=== PATIENT | female | born 1990 | race Caucasian/White ===

== ENCOUNTER 2017-06-30 19:09 | Emergency (ER) | payer OTHER ==
[~2017-06-30] VITALS: Ht 180.3 cm; Wt 90.7 kg
--- NOTE | ~2017-06-30 | EKG ---
[address] [address] ELECTROCARDIOGRAM REPORT Name: LAUREN MCLAUGHLINLLE Room #: [id number] Admission: 06/30/17 Attend Phys: Discharge: 06/30/17 Date of : [birth year] Report #: [id number] THIS REPORT FOR: //name// Formerly [facility] ED Test Date: 2017-06-30 Test Time: 20:23:21 Pat Name: LAUREN MCALUGHLIN Department: Room: Gender: F Inspector Floor: JUAN M : 1990 Requested By: Moncho Rogers Order Number: [id number] MD: Darion Brooke Measurements Intervals [place] Rate: 117 P: 47 AK: 133 QRS: 3 QRSD: 84 T: 33 QT: 298 QTc: 416 Interpretive Statements Sinus tachycardia Low voltage, precordial leads Baseline wander in lead(s) II,III,aVF,V3 Compared to ECG 05/30/2017 14:19:31 Electronically Signed On 07-01-2017 9:11:34 [employer] by Darion Brooke [email or web address] <ELECTRONICALLY SIGNED> By: Darion Brooke MD 07/01/17910 22 22 Darion Brooke MD /KEMI
[~2017-06-30 19:09] MED LIST: ACETAMINOPHEN-1 EAC1 PO; ALEVE220 MG; APAP500; CIPROFLOXACIN250 M2 PO; CLEOCIN HCL150 MG PO; CLEOCIN HCL300 MG PO; DEPO; DEPO-ESTRAD5 MG/1 ML; EXCEDRIN CAPLE1 EACH; EXCEDRIN MIGRA1 EAC1 PO; FLAGYL500 MG PO; IBUPROFEN 200200 M1 PO; IBUPROFEN 600600 M1 PO; IBUPROFEN 800800 MG PO; LEVAQUIN 500 M500 MG PO; NAPROSYN500 MG PO; NOHOMEMEDICATIONS; NORCO 5-325 TA1 EACH PO; PREDNISONE 20 M20 M1 PO; PREDNISONE 20 M20 MG PO; PRENATAL TABLE1 EAC4 PO; PRILOSEC 20 MG20 MG PO; PYRIDIUM200 M1 PO; TESSALON PERLE100 MG PO; TOBREX5 ML OPHTHALMIC; ULTRAM 50MG TAB50 MG PO; VENTOLIN HFA 1818 GM INH; ZPAK PO; ZYRTEC10 M2 PO
[2017-06-30 20:26] LABS: URINE BILIRUBIN NEGATIVE (Negative); URINE BLOOD 3+ (Negative); URINE CLARITY CLEAR; URINE COLOR YELLOW; URINE GLUCOSE-RANDOM* NEGATIVE (Negative); URINE KETONES NEGATIVE (Negative); URINE LEUKOCYTES-REFLEX NEGATIVE (Negative); URINE NITRITE-REFLEX NEGATIVE (Negative); URINE PROTEIN (DIPSTICK) TRACE (Negative); URINE SPECIFIC GRAVITY 1.015 (1.005-1.035); URINE UROBILINOGEN 0.2 E.U./dl (0.2-1.0)
[2017-06-30 20:36] LABS: SQUAMOUS >10 Many /LPF (0-3); URINE WBC-REFLEX 0-5 Rare /HPF (0-5)
[2017-06-30 20:37] LABS: BACTERIA-REFLEX >30 Many /HPF (None Seen); CASTS None Seen /LPF (None Seen); CRYSTALS None Seen /LPF (None Seen); URINE RBC 3-10 Few /HPF (0-2)
[2017-06-30] MEDS ORDERED: DEPO-PROVER150 MG/M1 IM (21:48)
[2017-06-30 21:52] LABS: ABSOLUTE NEUTROPHILS 10.8 thou/uL (1.4-8.2); BASOPHILS 0.5 % (0.0-2.0); HEMATOCRIT 41.6 % (37.0-47.0); HEMOGLOBIN 14.3 gm/dL (12.0-15.0); MCH 29.7 pg (26.0-34.0); MCHC 34.4 g/dL (28.0-37.0); MCV 86.4 fL (80.0-100.0); MONOCYTES 5.7 % (1.0-8.0); PLATELET COUNT 167 thou/uL (150-400); POLYS 80.8 % (36.0-66.0); RBC 4.82 mil/uL (4.20-5.00); WBC 13.3 thou/uL (4.0-11.0)
[2017-06-30 22:01] LABS: CALCIUM 9.3 mg/dL (8.5-10.1); POTASSIUM 3.6 mmol/L (3.5-5.1)
[2017-06-30 22:07] LABS: ALBUMIN 4.1 g/dL (3.4-5.0); TOTAL BILIRUBIN 0.6 mg/dL (<0.1-1.0)
[2017-06-30] MEDS ORDERED: DOXYCYCLINE 10100 MG PO (22:56)
[2017-06-30] MEDS ORDERED: TESSALON PERLE100 MG PO (22:56)
[2017-06-30 23:35] VITALS: BP 127/85
[2017-06-30] MEDS ORDERED: OSELB75 PO (23:40)
[2018-01-10] MEDS ORDERED: PREDNISONE 20 M20 MG PO (00:15)
[2018-01-10] MEDS ORDERED: TOPAMAX50 MG PO (00:16)
[2018-01-10] MEDS ORDERED: REGLAN 10 MG TA10 MG PO (00:17)
[2018-01-10] MEDS ORDERED: PEPCID20 MG PO (02:05)
[2018-01-10] MEDS ORDERED: TRAMADOL 50 MG50 MG PO (02:05)
[2018-01-15] MEDS ORDERED: HYDROCODONE-AP1 EAC6 PO (15:57)
[2018-02-06] MEDS ORDERED: CARAFATE1 GM/10 ML PO (07:06)
== END 2017-06-30 23:36 | disposition home or self-care (01) ==
LOC: ER 19:09
PROVIDERS: Emergency Medicine
DX: J11.1 Influenza due to unidentified influenza virus with other respiratory manifestations (principal); R11.10 Vomiting, unspecified; F17.210 Nicotine dependence, cigarettes, uncomplicated; Z85.41 Personal history of malignant neoplasm of cervix uteri; Z88.0 Allergy status to penicillin; Z88.2 Allergy status to sulfonamides; Z88.8 Allergy status to other drugs, medicaments and biological substances

== ENCOUNTER 2017-09-25 18:33 | Emergency (ER) | payer OTHER ==
[~2017-09-25] VITALS: Ht 180.3 cm; Wt 90.7 kg
[~2017-09-25 18:33] MED LIST changes: +DEPO-PROVER150 MG/M1 IM; +DOXYCYCLINE 10100 MG PO; +OSELB75 PO
[2017-09-25] MEDS ORDERED: NOHOMEMEDICATIONS (18:56)
[2017-09-25] MEDS ORDERED: IMITREX 25 MG T25 M1 PO (21:27)
[2017-09-25 22:08] VITALS: BP 136/82
== END 2017-09-25 22:10 | disposition home or self-care (01) ==
LOC: ER 18:33
DX: R51 Headache (principal); F17.210 Nicotine dependence, cigarettes, uncomplicated; Z87.440 Personal history of urinary (tract) infections; Z87.442 Personal history of urinary calculi; Z90.89 Acquired absence of other organs; Z88.0 Allergy status to penicillin; Z88.2 Allergy status to sulfonamides; Z88.8 Allergy status to other drugs, medicaments and biological substances

== ENCOUNTER 2018-07-24 23:47 | Emergency (ER) | payer OTHER ==
[~2018-07-24] VITALS: Ht 180.3 cm; Wt 99.8 kg
[~2018-07-24 23:47] MED LIST changes: +CARAFATE1 GM/10 ML PO; +HYDROCODONE-AP1 EAC6 PO; +IMITREX 25 MG T25 M1 PO; +PEPCID20 MG PO; +REGLAN 10 MG TA10 MG PO; +TOPAMAX50 MG PO; +TRAMADOL 50 MG50 MG PO
[2018-07-25 00:27] LABS: ABSOLUTE NEUTROPHILS 7.6 thou/uL (1.4-8.2); BASOPHILS 0.9 % (0.0-2.0); EOSINOPHILS 0.5 % (0.0-3.0); HEMATOCRIT 39.7 % (37.0-47.0); HEMOGLOBIN 13.7 gm/dL (12.0-15.0); LYMPHOCYTES 34.8 % (24.0-44.0); MCH 29.7 pg (26.0-34.0); MCHC 34.6 g/dL (28.0-37.0); MCV 85.8 fL (80.0-100.0); MONOCYTES 4.9 % (1.0-8.0); PLATELET COUNT 208 thou/uL (150-400); POLYS 58.9 % (36.0-66.0); RBC 4.63 mil/uL (4.20-5.00); RDW 13.6 % (10.5-14.5); WBC 12.9 thou/uL (4.0-11.0)
[2018-07-25 00:33] LABS: CALCIUM 9.2 mg/dL (8.5-10.1); CREATININE 0.9 mg/dL (0.6-1.0)
[2018-07-25 00:40] LABS: ALBUMIN 4.1 g/dL (3.4-5.0); TOTAL BILIRUBIN 0.4 mg/dL (<0.1-1.0); TOTAL PROTEIN 7.6 g/dL (6.4-8.2)
[2018-07-25 03:00] VITALS: BP 155/86
[2018-07-25] MEDS ORDERED: BENTYL 20 MG TA20 M1 PO (03:17)
[2018-07-25] MEDS ORDERED: NORCO 5-325 TA1 EACH PO (03:17)
[2018-07-25] MEDS ORDERED: ONDANSETRON HCL4 M2 PO (03:17)
[2018-07-25 03:33] LABS: URINE BILIRUBIN NEGATIVE (Negative); URINE BLOOD 2+ (Negative); URINE CLARITY CLEAR; URINE COLOR YELLOW; URINE GLUCOSE-RANDOM* NEGATIVE (Negative); URINE KETONES NEGATIVE (Negative); URINE LEUKOCYTES-REFLEX NEGATIVE (Negative); URINE NITRITE-REFLEX NEGATIVE (Negative); URINE PROTEIN (DIPSTICK) NEGATIVE (Negative); URINE SPECIFIC GRAVITY >= 1.030 (1.005-1.035); URINE UROBILINOGEN 0.2 E.U./dl (0.2-1.0)
[2018-07-25 03:41] LABS: SQUAMOUS 4-10 Moderate /LPF (0-3)
[2018-07-25 03:42] LABS: BACTERIA-REFLEX 1-9 Few /HPF (None Seen); CASTS None Seen /LPF (None Seen); CRYSTALS None Seen /LPF (None Seen); MUCUS 0-3 Light strn/LPF (None Seen); URINE RBC 3-10 Few /HPF (0-2); URINE WBC-REFLEX 0-5 Rare /HPF (0-5)
== END 2018-07-25 03:00 | disposition home or self-care (01) ==
LOC: ER 23:47
PROVIDERS: Emergency Medicine
DX: R10.11 Right upper quadrant pain (principal); R10.13 Epigastric pain; G43.909 Migraine, unspecified, not intractable, without status migrainosus; Z98.890 Other specified postprocedural states

== ENCOUNTER 2019-02-16 14:59 | Emergency (ER) | payer OTHER ==
[~2019-02-16] VITALS: Ht 180.3 cm; Wt 99.8 kg
[~2019-02-16 14:59] MED LIST changes: +BENTYL 20 MG TA20 M1 PO; +ONDANSETRON HCL4 M2 PO
[2019-02-16] MEDS ORDERED: TIZANIDINE HCL 22 M1 PO (15:07)
[2019-02-16] MEDS ORDERED: TRAZODONE HCL100 MG PO (15:07)
[2019-02-16] MEDS ORDERED: SUMATRIPTAN SU100 MG PO (15:08)
[2019-02-16] MEDS ORDERED: CELEXA40 MG PO (15:08)
[2019-02-16 15:39] LABS: ABSOLUTE NEUTROPHILS 6.5 thou/uL (1.4-8.2); BASOPHILS 0.9 % (0.0-2.0); EOSINOPHILS 0.2 % (0.0-3.0); HEMATOCRIT 41.2 % (37.0-47.0); HEMOGLOBIN 13.8 gm/dL (12.0-15.0); LYMPHOCYTES 30.4 % (24.0-44.0); MCH 29.5 pg (26.0-34.0); MCHC 33.4 g/dL (28.0-37.0); MCV 88.3 fL (80.0-100.0); MONOCYTES 3.9 % (1.0-8.0); PLATELET COUNT 200 thou/uL (150-400); POLYS 64.6 % (36.0-66.0); RBC 4.67 mil/uL (4.20-5.00); RDW 13.4 % (10.5-14.5)
[2019-02-16 15:50] LABS: CALCIUM 8.6 mg/dL (8.5-10.1); CREATININE 0.7 mg/dL (0.6-1.0); POTASSIUM 4.2 mmol/L (3.5-5.1)
[2019-02-16 15:55] LABS: TOTAL BILIRUBIN 0.3 mg/dL (<0.1-1.0); TOTAL PROTEIN 7.4 g/dL (6.4-8.2)
[2019-02-16 16:03] LABS: URINE BILIRUBIN NEGATIVE (Negative); URINE BLOOD 2+ (Negative); URINE CLARITY CLEAR; URINE COLOR YELLOW; URINE GLUCOSE-RANDOM* NEGATIVE (Negative); URINE KETONES NEGATIVE (Negative); URINE LEUKOCYTES-REFLEX NEGATIVE (Negative); URINE NITRITE-REFLEX NEGATIVE (Negative)
[2019-02-16 16:11] LABS: AMP/METHAMP Negative (Negative); BARBITURATES Negative (Negative); BENZODIAZEPINES Negative (Negative); COCAINE Negative (Negative); METHADONE Negative (Negative); OPIATES Negative (Negative); PCP Negative (Negative)
[2019-02-16 16:13] LABS: URINE PROTEIN (DIPSTICK) TRACE (Negative)
[2019-02-16 16:14] LABS: SQUAMOUS >10 Many /LPF (0-3)
[2019-02-16 16:15] LABS: BACTERIA-REFLEX None Seen /HPF (None Seen); CASTS None Seen /LPF (None Seen); CRYSTALS None Seen /LPF (None Seen); URINE WBC-REFLEX 0-5 Rare /HPF (0-5)
[2019-02-16 16:16] LABS: SSA (PROTEIN CONFIRMATORY) TRACE (APPROX. 5) mg/dL (Negative)
[2019-02-16] MEDS ORDERED: BUTALB-APAP-CA1 EACH PO (17:47)
[2019-02-16 18:55] VITALS: BP 114/75
== END 2019-02-16 18:56 | disposition home or self-care (01) ==
LOC: ER 14:59
PROVIDERS: Physician Assistant
DX: G43.909 Migraine, unspecified, not intractable, without status migrainosus (principal); R11.2 Nausea with vomiting, unspecified; F17.210 Nicotine dependence, cigarettes, uncomplicated; Z88.0 Allergy status to penicillin; Z88.5 Allergy status to narcotic agent; Z88.8 Allergy status to other drugs, medicaments and biological substances; Z98.890 Other specified postprocedural states; Z90.89 Acquired absence of other organs

== ENCOUNTER 2019-02-19 08:43 | Emergency (ER) | payer OTHER ==
[~2019-02-19] VITALS: Ht 180.3 cm; Wt 99.8 kg
[~2019-02-19 08:43] MED LIST changes: +BUTALB-APAP-CA1 EACH PO; +CELEXA40 MG PO; +SUMATRIPTAN SU100 MG PO; +TIZANIDINE HCL 22 M1 PO; +TRAZODONE HCL100 MG PO
[2019-02-19] MEDS ORDERED: MOBIC15 MG PO (10:14)
[2019-02-19] MEDS ORDERED: VALIUM5 MG PO (10:14)
[2019-02-19 10:24] VITALS: BP 117/72
== END 2019-02-19 10:27 | disposition home or self-care (01) ==
LOC: ER 08:43
DX: S16.1XXA Strain of muscle, fascia and tendon at neck level, initial encounter (principal); S09.8XXA Other specified injuries of head, initial encounter; F17.210 Nicotine dependence, cigarettes, uncomplicated; G43.909 Migraine, unspecified, not intractable, without status migrainosus; Z88.0 Allergy status to penicillin; Z88.2 Allergy status to sulfonamides; Z88.8 Allergy status to other drugs, medicaments and biological substances; Z98.890 Other specified postprocedural states; Z90.89 Acquired absence of other organs; W22.8XXA Striking against or struck by other objects, initial encounter; Y92.89 Other specified places as the place of occurrence of the external cause; Y93.89 Activity, other specified; Y99.8 Other external cause status

== ENCOUNTER 2019-03-21 11:02 | Emergency (ER) | payer OTHER ==
[~2019-03-21] VITALS: Ht 180.3 cm; Wt 99.8 kg
[~2019-03-21 11:02] MED LIST changes: +MOBIC15 MG PO; +VALIUM5 MG PO
[2019-03-21 11:37] LABS: URINE BILIRUBIN NEGATIVE (Negative); URINE BLOOD NEGATIVE (Negative); URINE CLARITY CLEAR; URINE COLOR YELLOW; URINE GLUCOSE-RANDOM* NEGATIVE (Negative); URINE KETONES NEGATIVE (Negative); URINE LEUKOCYTES NEGATIVE (Negative); URINE NITRITE NEGATIVE (Negative); URINE PROTEIN (DIPSTICK) NEGATIVE (Negative); URINE SPECIFIC GRAVITY 1.025 (1.005-1.035); URINE UROBILINOGEN 0.2 E.U./dl (0.2-1.0)
[2019-03-21 11:52] LABS: BASOPHILS 0.8 % (0.0-2.0); EOSINOPHILS 0.4 % (0.0-3.0); HEMATOCRIT 42.3 % (37.0-47.0); HEMOGLOBIN 14.4 gm/dL (12.0-15.0); LYMPHOCYTES 30.4 % (24.0-44.0); MCH 30.3 pg (26.0-34.0); MCHC 34.1 g/dL (28.0-37.0); MCV 88.8 fL (80.0-100.0); PLATELET COUNT 191 thou/uL (150-400); POLYS 63.4 % (36.0-66.0); RBC 4.77 mil/uL (4.20-5.00); RDW 13.4 % (10.5-14.5); WBC 9.4 thou/uL (4.0-11.0)
[2019-03-21 12:03] LABS: CALCIUM 9.3 mg/dL (8.5-10.1); CREATININE 0.7 mg/dL (0.6-1.0); POTASSIUM 3.8 mmol/L (3.5-5.1)
[2019-03-21 12:08] LABS: ALBUMIN 4.1 g/dL (3.4-5.0); TOTAL BILIRUBIN 0.4 mg/dL (<0.1-1.0); TOTAL PROTEIN 7.6 g/dL (6.4-8.2)
[2019-03-21 14:17] VITALS: BP 129/81
== END 2019-03-21 14:17 | disposition home or self-care (01) ==
LOC: ER 11:02
PROVIDERS: Emergency Medicine
DX: E86.0 Dehydration (principal); R42 Dizziness and giddiness; G43.909 Migraine, unspecified, not intractable, without status migrainosus; F17.210 Nicotine dependence, cigarettes, uncomplicated; Z90.89 Acquired absence of other organs; Z85.41 Personal history of malignant neoplasm of cervix uteri; Z88.2 Allergy status to sulfonamides; Z88.0 Allergy status to penicillin; Z88.8 Allergy status to other drugs, medicaments and biological substances

== ENCOUNTER 2019-04-30 20:03 | Emergency (ER) | payer OTHER ==
[~2019-04-30] VITALS: Ht 180.3 cm; Wt 96.6 kg
[2019-04-30] MEDS ORDERED: ULTRAM 50MG TAB50 MG PO (20:40)
[2019-04-30] MEDS ORDERED: CLEOCIN HCL150 MG PO (20:40)
[2019-04-30 20:50] VITALS: BP 119/79
== END 2019-04-30 21:05 | disposition home or self-care (01) ==
LOC: ER 20:03
DX: N73.2 Unspecified parametritis and pelvic cellulitis (principal); G43.909 Migraine, unspecified, not intractable, without status migrainosus; F17.210 Nicotine dependence, cigarettes, uncomplicated; Z98.890 Other specified postprocedural states; Z87.440 Personal history of urinary (tract) infections; Z90.49 Acquired absence of other specified parts of digestive tract; Z88.0 Allergy status to penicillin; Z88.2 Allergy status to sulfonamides; Z88.8 Allergy status to other drugs, medicaments and biological substances

== ENCOUNTER 2019-06-05 08:09 | Emergency (ER) | payer OTHER ==
[~2019-06-05] VITALS: Ht 180.3 cm; Wt 93.0 kg
[2019-06-05 08:52] LABS: HEMATOCRIT 44.7 % (37.0-47.0); MCH 29.3 pg (26.0-34.0); MCHC 33.5 g/dL (28.0-37.0); MCV 87.7 fL (80.0-100.0); PLATELET COUNT 181 thou/uL (150-400); RDW 13.4 % (10.5-14.5)
[2019-06-05 08:54] LABS: URINE BILIRUBIN NEGATIVE (Negative); URINE BLOOD NEGATIVE (Negative); URINE CLARITY CLEAR; URINE COLOR YELLOW; URINE GLUCOSE-RANDOM* NEGATIVE (Negative); URINE KETONES NEGATIVE (Negative); URINE LEUKOCYTES-REFLEX NEGATIVE (Negative); URINE NITRITE-REFLEX NEGATIVE (Negative); URINE PROTEIN (DIPSTICK) NEGATIVE (Negative); URINE SPECIFIC GRAVITY >= 1.030 (1.005-1.035); URINE UROBILINOGEN 0.2 E.U./dl (0.2-1.0)
[2019-06-05 09:04] LABS: CALCIUM 8.8 mg/dL (8.5-10.1); CREATININE 0.8 mg/dL (0.6-1.0); POTASSIUM 4.2 mmol/L (3.5-5.1)
[2019-06-05 09:10] LABS: ALBUMIN 4.4 g/dL (3.4-5.0); TOTAL BILIRUBIN 0.7 mg/dL (<0.1-1.0); TOTAL PROTEIN 8.2 g/dL (6.4-8.2)
[2019-06-05 09:19] LABS: ABSOLUTE NEUTROPHILS 19.7 thou/uL (1.4-8.2)
[2019-06-05] MEDS ORDERED: NORFLEX100 MG PO (12:21)
[2019-06-05] MEDS ORDERED: IBUPROFEN 800800 M1 PO (12:21)
[2019-06-05] MEDS ORDERED: ZOFRAN ODT4 MG PO (12:21)
[2019-06-05 13:02] VITALS: BP 104/64
== END 2019-06-05 12:57 | disposition home or self-care (01) ==
LOC: ER 08:09
PROVIDERS: Emergency Medicine
DX: S39.012A Strain of muscle, fascia and tendon of lower back, initial encounter (principal); A08.4 Viral intestinal infection, unspecified; G43.909 Migraine, unspecified, not intractable, without status migrainosus; F17.210 Nicotine dependence, cigarettes, uncomplicated; Z90.89 Acquired absence of other organs; Z90.49 Acquired absence of other specified parts of digestive tract; Z98.890 Other specified postprocedural states; Z85.51 Personal history of malignant neoplasm of bladder; Z88.2 Allergy status to sulfonamides; Z88.0 Allergy status to penicillin; X58.XXXA Exposure to other specified factors, initial encounter; Y92.89 Other specified places as the place of occurrence of the external cause; Y93.89 Activity, other specified; Y99.8 Other external cause status

== ENCOUNTER 2019-06-07 19:21 | Emergency (ER) | payer OTHER ==
[~2019-06-07] VITALS: Ht 180.3 cm; Wt 93.9 kg
[~2019-06-07 19:21] MED LIST changes: +IBUPROFEN 800800 M1 PO; +NORFLEX100 MG PO; +ZOFRAN ODT4 MG PO
[2019-06-07 19:24] VITALS: BP 119/77
== END 2019-06-07 21:01 | disposition left against medical advice (07) ==
LOC: ER 19:21
DX: Z53.21 Procedure and treatment not carried out due to patient leaving prior to being seen by health care provider (principal)

== ENCOUNTER 2019-07-03 16:58 | Emergency (ER) | payer OTHER ==
[~2019-07-03] VITALS: Ht 180.3 cm; Wt 95.3 kg
[2019-07-03 18:46] VITALS: BP 130/88
== END 2019-07-03 18:47 | disposition home or self-care (01) ==
LOC: ER 16:58
DX: S93.491A Sprain of other ligament of right ankle, initial encounter (principal); F17.210 Nicotine dependence, cigarettes, uncomplicated; Z88.0 Allergy status to penicillin; Z88.2 Allergy status to sulfonamides; Z88.8 Allergy status to other drugs, medicaments and biological substances; G43.909 Migraine, unspecified, not intractable, without status migrainosus; Z98.890 Other specified postprocedural states; W00.2XXA Other fall from one level to another due to ice and snow, initial encounter; Y93.29 Activity, other involving ice and snow; Y92.89 Other specified places as the place of occurrence of the external cause; Y99.8 Other external cause status

== ENCOUNTER 2019-07-28 18:09 | Emergency (ER) | payer OTHER ==
[~2019-07-28] VITALS: Ht 180.3 cm; Wt 96.6 kg
[2019-07-28] MEDS ORDERED: MEDROLDOSEPACK PO (18:47)
[2019-07-28] MEDS ORDERED: PROPRANOLOL 1010 MG PO (18:47)
[2019-07-28] MEDS ORDERED: RIZATRIPTAN5 M1 PO (18:48)
[2019-07-28 19:59] LABS: ABSOLUTE NEUTROPHILS 5.8 thou/uL (1.4-8.2); BASOPHILS 0.7 % (0.0-2.0); EOSINOPHILS 0.3 % (0.0-3.0); HEMATOCRIT 43.2 % (37.0-47.0); HEMOGLOBIN 14.3 gm/dL (12.0-15.0); LYMPHOCYTES 40.6 % (24.0-44.0); MCH 29.3 pg (26.0-34.0); MCHC 33.2 g/dL (28.0-37.0); MCV 88.3 fL (80.0-100.0); MONOCYTES 6.4 % (1.0-8.0); PLATELET COUNT 224 thou/uL (150-400); RBC 4.89 mil/uL (4.20-5.00); RDW 13.9 % (10.5-14.5); WBC 11.1 thou/uL (4.0-11.0)
[2019-07-28 20:01] LABS: CALCIUM 9.3 mg/dL (8.5-10.1); CREATININE 0.7 mg/dL (0.6-1.0); POTASSIUM 3.6 mmol/L (3.5-5.1)
[2019-07-28 22:46] LABS: CSF GLUCOSE 63 mg/dL (40-70)
[2019-07-28 23:04] LABS: VOLUME 7 ml
[2019-07-28 23:05] LABS: CSF CLARITY CLEAR; CSF COLOR COLORLESS; CSF RBC 6 /mm3; CSF WBC 0 /mm3 (0-10)
[2019-07-29 01:15] VITALS: BP 127/75
== END 2019-07-29 01:15 | disposition home or self-care (01) ==
LOC: ER 18:09
PROVIDERS: Emergency Medicine
DX: G93.2 Benign intracranial hypertension (principal); R19.7 Diarrhea, unspecified; E66.9 Obesity, unspecified; G43.909 Migraine, unspecified, not intractable, without status migrainosus; F17.210 Nicotine dependence, cigarettes, uncomplicated; Z68.29 Body mass index [BMI] 29.0-29.9, adult; Z98.890 Other specified postprocedural states; Z87.440 Personal history of urinary (tract) infections; Z90.49 Acquired absence of other specified parts of digestive tract; Z88.0 Allergy status to penicillin; Z88.2 Allergy status to sulfonamides; Z88.8 Allergy status to other drugs, medicaments and biological substances

== ENCOUNTER 2019-09-19 13:09 | Emergency (ER) | payer OTHER ==
[~2019-09-19] VITALS: Ht 180.3 cm; Wt 96.6 kg
[~2019-09-19 13:09] MED LIST changes: +MEDROLDOSEPACK PO; +PROPRANOLOL 1010 MG PO; +RIZATRIPTAN5 M1 PO
[2019-09-19 13:54] LABS: ABSOLUTE NEUTROPHILS 6.8 thou/uL (1.4-8.2); BASOPHILS 0.3 % (0.0-2.0); EOSINOPHILS 0.5 % (0.0-3.0); HEMATOCRIT 42.9 % (37.0-47.0); HEMOGLOBIN 14.4 gm/dL (12.0-15.0); LYMPHOCYTES 31.3 % (24.0-44.0); MCH 30.2 pg (26.0-34.0); MCHC 33.6 g/dL (28.0-37.0); MCV 89.8 fL (80.0-100.0); MONOCYTES 5.7 % (1.0-8.0); PLATELET COUNT 216 thou/uL (150-400); POLYS 62.2 % (36.0-66.0); RBC 4.77 mil/uL (4.20-5.00); RDW 13.8 % (10.5-14.5)
[2019-09-19 13:57] LABS: CREATININE 0.7 mg/dL (0.6-1.0); POTASSIUM 3.9 mmol/L (3.5-5.1)
[2019-09-19 14:03] LABS: TOTAL BILIRUBIN 0.6 mg/dL (<0.1-1.0); TOTAL PROTEIN 7.5 g/dL (6.4-8.2)
[2019-09-19] MEDS ORDERED: CYCLOBENZAPRINE5 MG PO (14:58)
[2019-09-19 15:35] VITALS: BP 149/92
== END 2019-09-19 15:36 | disposition home or self-care (01) ==
LOC: ER 13:09
PROVIDERS: Physician Assistant
DX: G43.909 Migraine, unspecified, not intractable, without status migrainosus (principal); M54.2 Cervicalgia; R11.10 Vomiting, unspecified; F17.210 Nicotine dependence, cigarettes, uncomplicated; Z90.49 Acquired absence of other specified parts of digestive tract; Z85.41 Personal history of malignant neoplasm of cervix uteri; Z98.890 Other specified postprocedural states; Z88.0 Allergy status to penicillin; Z88.2 Allergy status to sulfonamides; Z88.8 Allergy status to other drugs, medicaments and biological substances

== ENCOUNTER 2019-11-25 08:31 | Emergency (ER) | payer OTHER ==
[~2019-11-25] VITALS: Ht 180.3 cm; Wt 99.8 kg
[~2019-11-25 08:31] MED LIST changes: +CYCLOBENZAPRINE5 MG PO
[2019-11-25] MEDS ORDERED: ACETAZOLAMIDE125 MG PO (08:51)
[2019-11-25 09:26] LABS: URINE BILIRUBIN NEGATIVE (Negative); URINE BLOOD NEGATIVE (Negative); URINE CLARITY CLEAR; URINE COLOR YELLOW; URINE GLUCOSE-RANDOM* NEGATIVE (Negative); URINE KETONES NEGATIVE (Negative); URINE LEUKOCYTES-REFLEX NEGATIVE (Negative); URINE NITRITE-REFLEX NEGATIVE (Negative); URINE PROTEIN (DIPSTICK) NEGATIVE (Negative); URINE SPECIFIC GRAVITY >= 1.030 (1.005-1.035); URINE UROBILINOGEN 0.2 E.U./dl (0.2-1.0)
[2019-11-25] MEDS ORDERED: ZOFRAN ODT4 MG PO (11:08)
[2019-11-25] MEDS ORDERED: TESSALON PERLE100 M1 PO (11:08)
[2019-11-25 11:16] VITALS: BP 100/52
== END 2019-11-25 11:16 | disposition home or self-care (01) ==
LOC: ER 08:31
PROVIDERS: Emergency Medicine
DX: J98.8 Other specified respiratory disorders (principal); Z20.828 Contact with and (suspected) exposure to other viral communicable diseases; R11.10 Vomiting, unspecified; G43.909 Migraine, unspecified, not intractable, without status migrainosus; F17.210 Nicotine dependence, cigarettes, uncomplicated; Z98.890 Other specified postprocedural states; Z90.89 Acquired absence of other organs; Z90.49 Acquired absence of other specified parts of digestive tract; Z79.899 Other long term (current) drug therapy; Z88.0 Allergy status to penicillin; Z88.2 Allergy status to sulfonamides; Z88.8 Allergy status to other drugs, medicaments and biological substances

== ENCOUNTER 2020-01-10 20:05 | Emergency (ER) | payer OTHER ==
[~2020-01-10] VITALS: Ht 180.3 cm; Wt 102.1 kg
[~2020-01-10 20:05] MED LIST changes: +ACETAZOLAMIDE125 MG PO; +TESSALON PERLE100 M1 PO
[2020-01-10 21:41] VITALS: BP 123/86
== END 2020-01-10 21:43 | disposition home or self-care (01) ==
LOC: ER 20:05
DX: S91.114A Laceration without foreign body of right lesser toe(s) without damage to nail, initial encounter (principal); F17.210 Nicotine dependence, cigarettes, uncomplicated; G43.909 Migraine, unspecified, not intractable, without status migrainosus; Z88.0 Allergy status to penicillin; Z88.2 Allergy status to sulfonamides; Z88.8 Allergy status to other drugs, medicaments and biological substances; Z79.899 Other long term (current) drug therapy; Z90.49 Acquired absence of other specified parts of digestive tract; W22.8XXA Striking against or struck by other objects, initial encounter; Y93.89 Activity, other specified; Y92.89 Other specified places as the place of occurrence of the external cause; Y99.9 Unspecified external cause status

== ENCOUNTER 2020-01-23 12:34 | Emergency (ER) | payer OTHER ==
[~2020-01-23] VITALS: Ht 180.3 cm; Wt 99.8 kg
[2020-01-23 12:41] VITALS: BP 155/87
[2020-01-23] MEDS ORDERED: ONDANSETRON HCL4 M2 PO (12:53)
[2020-01-23] MEDS ORDERED: KEFLEX500 M1 PO (12:53)
== END 2020-01-23 13:13 | disposition home or self-care (01) ==
LOC: ER 12:34
DX: L03.031 Cellulitis of right toe (principal); G43.909 Migraine, unspecified, not intractable, without status migrainosus; F17.210 Nicotine dependence, cigarettes, uncomplicated; Z98.890 Other specified postprocedural states; Z90.89 Acquired absence of other organs; Z90.49 Acquired absence of other specified parts of digestive tract; Z79.899 Other long term (current) drug therapy; Z88.0 Allergy status to penicillin; Z88.2 Allergy status to sulfonamides; Z88.8 Allergy status to other drugs, medicaments and biological substances

== ENCOUNTER 2020-03-23 17:31 | Emergency (ER) | payer OTHER ==
[~2020-03-23] VITALS: Ht 180.3 cm; Wt 104.3 kg
[~2020-03-23 17:31] MED LIST changes: +KEFLEX500 M1 PO
[2020-03-23] MEDS ORDERED: AJOVY AUTO225 MG/1.5 IM (18:11)
[2020-03-23] MEDS ORDERED: GUAIFENESIN-CODE5 ML PO (18:21)
[2020-03-23] MEDS ORDERED: PROAIR HFA8.5 GM INH (18:21)
[2020-03-23 19:02] VITALS: BP 132/83
== END 2020-03-23 19:02 | disposition home or self-care (01) ==
LOC: ER 17:31
DX: U07.1 COVID-19 (principal); J40 Bronchitis, not specified as acute or chronic; G43.909 Migraine, unspecified, not intractable, without status migrainosus; F17.210 Nicotine dependence, cigarettes, uncomplicated; Z90.89 Acquired absence of other organs; Z79.899 Other long term (current) drug therapy; Z88.0 Allergy status to penicillin; Z88.2 Allergy status to sulfonamides; Z88.8 Allergy status to other drugs, medicaments and biological substances

== ENCOUNTER 2020-04-05 17:29 | Emergency (ER) | payer OTHER ==
[~2020-04-05] VITALS: Ht 180.3 cm; Wt 99.8 kg
[~2020-04-05 17:29] MED LIST changes: +AJOVY AUTO225 MG/1.5 IM; +GUAIFENESIN-CODE5 ML PO; +PROAIR HFA8.5 GM INH
[2020-04-05 19:05] VITALS: BP 117/67
== END 2020-04-05 20:00 | disposition home or self-care (01) ==
LOC: ER 17:29
DX: G43.909 Migraine, unspecified, not intractable, without status migrainosus (principal); F17.210 Nicotine dependence, cigarettes, uncomplicated; Z90.49 Acquired absence of other specified parts of digestive tract; Z90.710 Acquired absence of both cervix and uterus; Z79.899 Other long term (current) drug therapy; Z88.0 Allergy status to penicillin; Z88.2 Allergy status to sulfonamides; Z88.8 Allergy status to other drugs, medicaments and biological substances

== ENCOUNTER 2021-04-30 20:54 | Emergency (ER) | payer OTHER ==
[~2021-04-30] VITALS: Ht 180.3 cm; Wt 110.2 kg
[2021-04-30 21:16] LABS: URINE BILIRUBIN NEGATIVE (Negative); URINE BLOOD NEGATIVE (Negative); URINE CLARITY CLEAR; URINE COLOR YELLOW; URINE GLUCOSE-RANDOM* NEGATIVE (Negative); URINE KETONES NEGATIVE (Negative); URINE LEUKOCYTES-REFLEX NEGATIVE (Negative); URINE NITRITE-REFLEX NEGATIVE (Negative); URINE PROTEIN (DIPSTICK) NEGATIVE (Negative); URINE UROBILINOGEN 0.2 E.U./dl (0.2-1.0)
[2021-04-30 21:31] LABS: ABSOLUTE NEUTROPHILS 10.3 thou/uL (1.4-8.2); BASOPHILS 0.8 % (0.0-2.0); EOSINOPHILS 0.7 % (0.0-3.0); HEMATOCRIT 39.8 % (37.0-47.0); HEMOGLOBIN 13.1 gm/dL (12.0-15.0); LYMPHOCYTES 23.7 % (24.0-44.0); MCH 29.2 pg (26.0-34.0); MCHC 33.1 g/dL (28.0-37.0); MCV 88.4 fL (80.0-100.0); MONOCYTES 4.9 % (1.0-8.0); PLATELET COUNT 226 thou/uL (150-400); POLYS 69.9 % (36.0-66.0); WBC 14.7 thou/uL (4.0-11.0)
[2021-04-30 21:42] LABS: CALCIUM 8.7 mg/dL (8.5-10.1); CREATININE 0.9 mg/dL (0.6-1.0); POTASSIUM 3.8 mmol/L (3.5-5.1)
[2021-04-30 21:48] LABS: ALBUMIN 3.6 g/dL (3.4-5.0); TOTAL BILIRUBIN 0.3 mg/dL (0.2-1.0); TOTAL PROTEIN 6.9 g/dL (6.4-8.2)
[2021-05-01 01:35] VITALS: BP 127/86
== END 2021-05-01 01:37 | disposition home or self-care (01) ==
LOC: ER 20:54
PROVIDERS: Emergency Medicine
DX: K59.00 Constipation, unspecified (principal); G43.909 Migraine, unspecified, not intractable, without status migrainosus; F17.210 Nicotine dependence, cigarettes, uncomplicated; Z88.0 Allergy status to penicillin; Z88.2 Allergy status to sulfonamides; Z79.899 Other long term (current) drug therapy; Z90.49 Acquired absence of other specified parts of digestive tract; Z98.890 Other specified postprocedural states